=== PATIENT | female | born 1980 | race Caucasian/White ===

== ENCOUNTER 2016-12-15 14:11 | Emergency (ER) | payer MEDICAID ==
[2016-12-15] MEDS ORDERED: LIDOCAINE 1%-EPI 1:100000 20 ML MDV ONE (14:48)
[2016-12-15] MEDS ORDERED: LIDOCAINE-MPF 1% 5 ML VIAL ONE (14:51)
[2016-12-15] MEDS ORDERED: TETANUS/DIPHTHERIA/PERTUSSIS 0.5 ML SYRINGE IM ONE ×2 (15:39→15:45)
== END 2016-12-15 15:53 | disposition home or self-care (01) ==
DX: S61.512A Laceration without foreign body of left wrist, initial encounter (principal); W29.8XXA Contact with other powered hand tools and household machinery, initial encounter; Y92.009 Unspecified place in unspecified non-institutional (private) residence as the place of occurrence of the external cause; Z23 Encounter for immunization

== ENCOUNTER 2017-05-28 08:00 | Outpatient (CLI) | payer MEDICAID | END 2017-05-28 08:01 | disposition home or self-care (01) | LOC: LAB.R 08:00 | PROVIDERS: ATTEND Obstetrics & Gynecology | DX: Z11.3 Encounter for screening for infections with a predominantly sexual mode of transmission (principal) | CPT/HCPCS: 87491; 87591 ==

== ENCOUNTER 2018-01-12 08:02 | Emergency (ER) | payer MEDICAID, OTHER ==
[2018-01-12 08:34] LABS: BILIRUBIN,URINE NEGATIVE (NEGATIVE); GLUCOSE, URINE (UA) NEGATIVE (NEGATIVE); KETONES,URINE (UA) NEGATIVE (NEGATIVE); LEUKOCYTE ESTERASE, URINE NEGATIVE (NEGATIVE); NITRITE,URINE NEGATIVE (NEGATIVE); OCCULT BLOOD,URINE MODERATE (NEGATIVE); PH,URINE 5.5 PH (5.0-7.5); PROTEIN,URINE NEGATIVE (NEGATIVE); UROBILINOGEN,URINE 0.2 (NORMAL) E.U./dL (NORMAL)
[2018-01-12 08:34] LABS: BASOPHILS % (AUTO) 0.4 %; EOSINOPHILS # (AUTO) 0.3 10^3/uL (0.0-0.7); EOSINOPHILS % (AUTO) 3.2 %; HGB - HEMOGLOBIN 12.8 g/dL (12.0-16.0); LYMPHOCYTES # (AUTO) 2.1 10^3/uL (1.5-3.5); LYMPHOCYTES % (AUTO) 21.2 %; MEAN CORPUSCULAR VOLUME 85.4 fL (81.0-99.0); MEAN PLATELET VOLUME 10.4 fL (7.9-10.8); MONOCYTES # (AUTO) 0.6 10^3/uL (0.0-1.0); MONOCYTES % (AUTO) 6.4 %; NEUTROPHILS # (AUTO) 6.8 10^3/uL (1.5-6.6); NEUTROPHILS % (AUTO) 68.8 %; PLT - PLATELET COUNT 174 10^3/uL (130-450); RED BLOOD COUNT 4.41 10^6/uL (4.20-5.40); RED CELL DISTRIBUTION WIDTH 13.7 % (12.0-15.0); WHITE BLOOD COUNT 9.9 x10^3/uL (4.8-10.8)
--- NOTE | 2018-01-12 08:38 | ED Physician Documentation ---
History of Present Illness - Stated complaint Stated Complaint: SPOTTING/11 WKS PREG - Chief complaint Chief Complaint: Abd Pain - Additonal information Additional information: hx from pt 11 weeks EGA followed at [facility] has had a sono but those results are not available to me on a weekend vag bleeding since last night was moderate "like a light period" now scant no pain did not pass tissue called [facility] nurses line and was advised if continued bleeding > 8 hr to come to ED so she did Review of Systems Constitutional: denies: Fever GI: denies: Abdominal Pain : reports: Vaginal bleeding, Now EGA PD PAST MEDICAL HISTORY - Past Surgical History Past Surgical History: Yes Ortho: Knee replacement - Present Medications Home Medications: Ambulatory Orders Medication Instructions Recorded Confirmed Pnv No.122/Iron/Folic Acid 01/12/18 [ Multi Tablet] - Allergies Allergies/Adverse Reactions: Allergies Allergy/AdvReac Type Severity Reaction Status Date / Time amoxicillin [Amoxicillin] AdvReac Rash Verified 01/12/18 08:12 - Social History Does the pt smoke?: No Smoking Status: Never smoker Does the pt drink ETOH?: No Does the pt have substance abuse?: No - Immunizations Immunizations are current?: No Immunizations: TDAP >10years/unknown - POLST Patient has POLST: No PD ED PE NORMAL - Vitals Vital signs reviewed: Yes - Cardiac Cardiac: RRR - Respiratory Respiratory: No respiratory distress, Clear bilaterally - Abdomen Abdomen: Non tender - Female Female : Tissue Inserter present (Jolene), Other (no external lesions, small old dark blood in vault, os closed, no dc, cultures sent) - Neuro Neuro: Alert and oriented X 3 Results - Vitals Vitals: Vital Signs - 24 hr 01/12/18 08:08 Temperature 36.5 C Heart Rate 84 Respiratory 16 Rate Blood Pressure 113/75 O2 Saturation 97 Oxygen O2 Source Room air - Labs Labs: Laboratory Tests 01/12/18 01/12/18 01/12/18 08:18 08:22 08:22 WBC 9.9 RBC 4.41 Hgb 12.8 Hct 37.7 MCV 85.4 MCH 29.0 MCHC 34.0 RDW 13.7 Plt Count 174 MPV 10.4 Neut # 6.8 H Lymph # 2.1 [place] # 0.6 Eos # 0.3 Baso # 0.0 Absolute Nucleated RBC 0.00 Nucleated RBC % 0.0 HCG, Quant Urine Color YELLOW Urine Clarity CLEAR Urine pH 5.5 Ur Specific [place] >=1.030 H Urine Protein NEGATIVE Urine Glucose (UA) NEGATIVE Urine Ketones NEGATIVE Urine Occult Blood MODERATE H Urine Nitrite NEGATIVE Urine Bilirubin NEGATIVE Urine Urobilinogen 0.2 (NORMAL) Ur Leukocyte Esterase NEGATIVE Urine RBC 0-5 Urine WBC 0-3 Ur Squamous Epith Cells MANY Squamous H Urine Bacteria Moderate H Urine Mucus Few Strands Ur Microscopic Review INDICATED Urine Culture Comments NOT INDICATED Blood Type B NEGATIVE 01/12/18 08:22 WBC RBC Hgb Hct MCV MCH MCHC RDW Plt Count MPV Neut # Lymph # [place] # Eos # Baso # Absolute Nucleated RBC Nucleated RBC % HCG, Quant 683054.00 Urine Color Urine Clarity Urine pH Ur Specific [place] Urine Protein Urine Glucose (UA) Urine Ketones Urine Occult Blood Urine Nitrite Urine Bilirubin Urine Urobilinogen Ur Leukocyte Esterase Urine RBC Urine WBC Ur Squamous Epith Cells Urine Bacteria Urine Mucus Ur Microscopic Review Urine Culture Comments Blood Type - Rads (name of study) OB sono Radiology: See rad report (single IUP 11+6 small fluid collection inferior edge posterior placenta, cervix closed) PD MEDICAL DECISION MAKING - ED course ED course: IUP on sono cervix closed bleeding stopped no dc to suggest infection UA not a clean catch - doubt UTI - wait on cx B neg gve rhogam d/w pt Departure - Departure Disposition: 01 Home, Self Care Clinical Impression: Normal IUP (intrauterine ) on ultrasound Qualifiers: Trimester: first trimester Qualified Code(s): Z34.91 - Encounter for supervision of normal , unspecified, first trimester Condition: Good Instructions: Bleeding Early Preg Follow-Up: [facility] [Provider Group] Comments: The ultrasound was reassuring - a live baby in the uterus. There was a very small amount of blood at the edge of the placenta which is the likely source of the bleeding you experienced. It is a small area and the placenta is otherwise normal. I cannot promise that there won't be more bleeding or a miscarriage but the ultrasound is reassuring, the bleeding seems to have stopped, there is no sign of an infection and your cervix is closed so thing look good right now As we discussed it is fine for you to go home Recommend pelvic rest (no sex no tampons) Please follow up with your OB this week for a recheck - we gave you a copy of your ultrasound to take with your. Please let your OB know that your blood type is B negative and you got Rhogam in the ER
[2018-01-12 08:54] LABS: CLARITY,URINE CLEAR (CLEAR)
[2018-01-12 08:55] LABS: BACTERIA,URINE Moderate /HPF (None Seen); MUCUS,URINE Few Strands; RBC,URINE 0-5 /HPF (0-5); SQUAMOUS EPITHELIAL CELL,UR MANY Squamous (<= Few)
--- NOTE | 2018-01-12 11:33 | Ultrasound Report ---
EXAM: FIRST TRIMESTER OBSTETRIC ULTRASOUND (Less than 11 weeks) EXAM DATE: 01/12/2018 11:00 AM. CLINICAL HISTORY: 37-year-old female. 11 weeks EGA bleeding. LMP: 10/27/2017. COMPARISONS: None. TECHNIQUE: Transabdominal and transvaginal ultrasound examination with static image documentation. CLINICAL DATES: EGA 11 weeks 0 days with TESSA 08/03/2018 based on LMP. ASSESSMENT: Gestational Sac: Single intrauterine. Gestational sac size subjectively proportionate. Embryo: CRL (crown-rump length) 53 mm = 11 weeks 6 days. Cardiac activity: 159 beats per minute. Yolk sac: 4.4 mm. Amniotic fluid: Not accurately assessed at this gestational age. Early placenta: Posterior. Other: 2.0 x 0.5 x 3.3 cm fluid collection along the inferior edge of the placenta. MATERNAL STRUCTURES: Uterus: Anteverted. Unremarkable. Cervix: Closed. 4.0 cm. Right Ovary/Adnexa: Unremarkable. The ovary measures 3.0 x 1.4 x 2.0 cm, volume 4.3 cc. Left Ovary/Adnexa: Unremarkable. The ovary measures 3.1 x 2.1 x 2.2 cm, volume 7.4 cc. Free Fluid: None. Other: None. IMPRESSION: 1. Single viable intrauterine at EGA 11 weeks 6 days with TESSA 07/28/2018 based on crown-rum p length, which is concordant with clinical dates. 2. Assigned dating is TESSA 08/03/2018 based on LMP. 3. Small 2.0 x 0.5 x 3.3 cm diskoid fluid collection/hemorrhage along the inferior edge of the lean process deployment consultant ior placenta. 4. Cervix long and closed. [facility] Referring Provider Line: [phone] SITE ID: [id number]
[2018-01-12] MEDS ORDERED: RHO(D) IMMUNE GLOBULIN 300 MCG SYRINGE IM ONE (12:07)
[2018-01-12 12:57] VITALS: BP 110/62
== END 2018-01-12 13:02 | disposition home or self-care (01) ==
LOC: ED 08:02
DX: Z34.91 Encounter for supervision of normal pregnancy, unspecified, first trimester (principal)
CPT/HCPCS: 36415; 76801; 76817; 81001; 81003; 84702; 85025; 86900; 86901; 87086; 87491; 87591; 96372; 99283

== ENCOUNTER 2018-05-06 13:55 | Emergency (ER) | payer OTHER ==
[2018-05-06 14:26] VITALS: BP 117/74
--- NOTE | 2018-05-06 15:33 | XRAY Report ---
Procedure Date: 05/06/2018 Accession Number: [id number] / [id number] Procedure: XR - Knee 4 View LT CPT Code: FULL RESULT: EXAM: LEFT KNEE RADIOGRAPHY EXAM DATE: 05/06/2018 02:59 PM. CLINICAL HISTORY: FALL, TWIST, MEDIAL COMPARTMENT KNEE PAIN. COMPARISON: None. TECHNIQUE: 4 views. FINDINGS: Bones: Normal. No fractures or bone lesions. Joints: Normal alignment. No subluxation. A small knee joint effusion is present. Soft Tissues: Normal. No soft tissue swelling. IMPRESSION: 1. No acute osseous abnormality. 2. Small knee joint effusion. In the setting of recent acute injury, this may be a sign of internal derangement. Follow-up noncontrast MRI of the knee may be helpful for further evaluation if clinically appropriate. [facility]
--- NOTE | 2018-05-06 15:46 | ED Physician Documentation ---
PD HPI LOWER EXT INJURY - Stated complaint Stated Complaint: L KNEE INJ - Chief complaint Chief Complaint: Trauma Ext - History obtained from History obtained from: Patient - History of Present Illness PD HPI LOW EXT INJURY LOCATION: Left, Knee Type of injury: Twist Where injury occurred: Home Timing - onset: Today Timing - duration: Minutes Timing - details: Abrupt onset, Still present Improved by: Rest, Ice, Immobilization Worsened by: Moving, Palpating Associated symptoms: Swelling. No: Weakness, Numbness Contributing factors: No: Anticoagulated Similar symptoms before: Diagnosis (meniscus injury) Recently seen: Other (getting routine pre-kourtney care.) - Additional information Additional information: 37-year-old female is 26 weeks and she has slipped in her home twisting her left knee. She has some pain in the back side of the knee and on the medial joint line. She is able to ambulate on this but with significant pain. Review of Systems Constitutional: denies: Fever Eyes: denies: Decreased vision Ears: denies: Ear pain Nose: denies: Congestion Throat: denies: Sore throat Cardiac: denies: Chest pain / pressure Respiratory: denies: Cough GI: denies: Vomiting : denies: Dysuria Skin: denies: Rash Musculoskeletal: reports: Extremity pain, Joint pain, Joint swelling, Pain with weight bearing. denies: Neck pain, Back pain PD PAST MEDICAL HISTORY - Past Medical History Past Medical History: Yes - Past Surgical History Past Surgical History: Yes Ortho: Knee replacement - Present Medications Home Medications: Ambulatory Orders Medication Instructions Recorded Confirmed Pnv No.122/Iron/Folic Acid 01/12/18 [ Multi Tablet] - Allergies Allergies/Adverse Reactions: Allergies Allergy/AdvReac Type Severity Reaction Status Date / Time amoxicillin [Amoxicillin] AdvReac Rash Verified 01/12/18 08:12 - Social History Does the pt smoke?: No Smoking Status: Never smoker Does the pt drink ETOH?: No Does the pt have substance abuse?: No - Immunizations Immunizations are current?: No Immunizations: TDAP >10years/unknown - POLST Patient has POLST: No PD ED PE NORMAL - Vitals Vital signs reviewed: Yes (tachy ) - General General: Alert and oriented X 3, No acute distress, Well developed/nourished - HEENT HEENT: Atraumatic, PERRL, EOMI - Neck Neck: Supple, no meningeal sign - Respiratory Respiratory: No respiratory distress - Derm Derm: Normal color, Warm and dry, No rash - Extremities Extremities: No deformity, No edema, Other (exam of the left knee reveals a small effusion palpable medially and pain along the medial joint line. The ligments are stable to testing and the distal n/v is intact. ) - Neuro Neuro: Alert and oriented X 3, sports journalist 2-12 intact, No motor deficit, No sensory deficit, Normal speech Eye Opening: Spontaneous Motor: Obeys Commands Verbal: Oriented GCS Score: 15 - Psych Psych: Normal mood, Normal affect Results - Vitals Vitals: Vital Signs - 24 hr 05/06/18 14:08 Temperature 36.6 C Heart Rate 104 H Respiratory 16 Rate Blood Pressure 117/74 O2 Saturation 99 Oxygen O2 Source Room air - Rads (name of study) knee Radiology: Prelim report reviewed (Impression: 1. No acute osseous abnormality. 2 Small joint effusion. In the setting of recent acute injury, this could may be a sign of internal derangement. Follow-up noncontrast MRI of the knee may be helpful for further evaluation if clinically appropriate.), EMP read indepedently, See rad report PD MEDICAL DECISION MAKING - ED course Complexity details: reviewed results, re-evaluated patient, considered differential, d/w patient ED course: 37-year-old female who is 26 weeks has had a twist of her left knee and appears to have a small joint effusion, and likely injury to the meniscus. Ligaments appear stable. She is placed on crutches for ambulation and will follow-up with orthopedics. - Sepsis Event Vital Signs: Vital Signs - 24 hr 05/06/18 14:08 Temperature 36.6 C Heart Rate 104 H Respiratory 16 Rate Blood Pressure 117/74 O2 Saturation 99 Oxygen O2 Source Room air Departure - Departure Disposition: 01 Home, Self Care Clinical Impression: Internal derangement of knee Qualifiers: Laterality: left Qualified Code(s): M23.92 - Unspecified internal derangement of left knee Condition: Stable Instructions: ED Meniscal Injury Knee Poss Follow-Up: JESSICA HAMMOND [Primary Care Provider] - [facility] [Provider Group]
== END 2018-05-06 16:23 | disposition home or self-care (01) ==
LOC: ED 13:55
DX: O9A.212 Injury, poisoning and certain other consequences of external causes complicating pregnancy, second trimester (principal); M23.92 Unspecified internal derangement of left knee; M25.462 Effusion, left knee; W01.0XXA Fall on same level from slipping, tripping and stumbling without subsequent striking against object, initial encounter; Y92.009 Unspecified place in unspecified non-institutional (private) residence as the place of occurrence of the external cause; Z3A.26 26 weeks gestation of pregnancy
CPT/HCPCS: 99282; 99283

== ENCOUNTER 2019-08-30 07:40 | Emergency (ER) | payer OTHER ==
[2019-08-30 08:10] VITALS: BP 100/68
[2019-08-30] MEDS ORDERED: CHERRY SYRUP 10 ML UDC PO ONE (08:43)
[2019-08-30] MEDS ORDERED: KETOROLAC 60 MG/2 ML VIAL IM STA (08:43)
[2019-08-30] MEDS ORDERED: DEXAMETHASONE 10 MG/ML VIAL PO STA (08:43)
--- NOTE | 2019-08-30 08:59 | ED Physician Documentation ---
PD HPI BACK PAIN - Stated complaint Stated Complaint: BACK PX - Chief complaint Chief Complaint: Back Pain - History obtained from History obtained from: Patient - History of Present Illness Timing - onset: How many days ago (2) Timing - duration: Days (2) Timing - details: Abrupt onset, Still present Location: Lower, Left Quality: Pain, Spasm, Sharp Associated symptoms: No: Fever, Weakness, Numbness, Incontinent of urine, Unable to urinate, Hematuria, Incontinent of stool Improves with: Rest, Position Worsened by: Movement, Lifting, Twisting, Palpation Contributing factors: Other (The patient has a 30lb daughter that she carries.) Similar symptoms before: Has not had sx before Recently seen: Not recently seen - Additional information Additional information: 39-year-old female states that she was trying on some close to days ago when she bent and had a sudden sharp pain to the left lower back. She has persistence of pain in this area and despite using a heating pack all day yesterday the pain is not resolved. She did do some of her 's methocarbamol this did not seem to help either. She does have a 30 pound daughter that she carries around she states that she does not believe she did anything more strenuous or used her back more than she normally does during a week. 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 She denies any numbness or tingling to the toes and denies any numbness to the perineum. She does not have extension of pain down the leg. Review of Systems Constitutional: denies: Fever, Chills Respiratory: denies: Cough GI: denies: Vomiting : denies: Dysuria, Frequency PD PAST MEDICAL HISTORY - Past Medical History Past Medical History: Yes - Past Surgical History Past Surgical History: Yes Ortho: Knee replacement - Present Medications Home Medications: Ambulatory Orders Medication Instructions Recorded Confirmed Pnv No.122/Iron/Folic Acid 01/12/18 [ Multi Tablet] Cyclobenzaprine [Flexeril] 10 mg PO TID PRN #20 tablet 08/30/19 Hydrocodone/Acetaminophen 1 - 2 each PO Q6H PRN #14 tablet 08/30/19 [Hydrocodon-Acetaminophen 5-325] - Allergies Allergies/Adverse Reactions: Allergies Allergy/AdvReac Type Severity Reaction Status Date / Time amoxicillin [Amoxicillin] AdvReac Rash Verified 01/12/18 08:12 - Social History Does the pt smoke?: No Smoking Status: Never smoker Does the pt drink ETOH?: No Does the pt have substance abuse?: No - Immunizations Immunizations are current?: No Immunizations: TDAP >10years/unknown - POLST Patient has POLST: No PD ED PE NORMAL - Vitals Vital signs reviewed: Yes (normal ) - General General: Alert and oriented X 3, No acute distress, Well developed/nourished - HEENT HEENT: Atraumatic, PERRL, EOMI - Respiratory Respiratory: No respiratory distress - Back Back: No CVA TTP, No spinal TTP, Other (There is pain to palpation to the paraspinous muscles of the lumbar spine on the left lower back. ) - Derm Derm: Normal color, Warm and dry, No rash - Extremities Extremities: No deformity, No edema - Neuro Neuro: Alert and oriented X 3, still runner 2-12 intact, No motor deficit, No sensory deficit, Normal speech Eye Opening: Spontaneous Motor: Obeys Commands Verbal: Oriented GCS Score: 15 - Psych Psych: Normal mood, Normal affect Results - Vitals Vitals: Vital Signs - 24 hr 08/30/19 08:06 Temperature 36.4 C L Heart Rate 76 Respiratory 14 Rate Blood Pressure 100/68 O2 Saturation 100 Oxygen O2 Source Room air PD MEDICAL DECISION MAKING - ED course Complexity details: considered differential, d/w patient ED course: 39-year-old female with acute left lower lumbar spasm is administered dexamethasone 10 mg orally and 60 mg of Toradol. We will place her on a short course of pain medication muscle relaxant and expect complete resolution. I have asked patient to stop using her heating pack and use ice and stretch. Departure - Departure Disposition: 01 Home, Self Care Clinical Impression: Lumbago without sciatica Qualifiers: Chronicity: acute Back pain laterality: left Qualified Code(s): M54.5 - Low back pain Condition: Stable Instructions: ED Spasm Back No Trauma Follow-Up: Lennox Guerrero ARNP [Primary Care Provider] - Prescriptions: Cyclobenzaprine [Flexeril] 10 mg PO TID PRN #20 tablet PRN Reason: Spasms Hydrocodone/Acetaminophen [Hydrocodon-Acetaminophen 5-325] 1 - 2 each PO Q6H PRN #14 tablet PRN Reason: pain
== END 2019-08-30 09:22 | disposition home or self-care (01) ==
LOC: ED 07:40
DX: M62.830 Muscle spasm of back (principal); M54.5 Low back pain
CPT/HCPCS: 99282; 99283; A9270

== ENCOUNTER 2019-12-03 10:23 | Emergency (ER) | payer OTHER ==
[2019-12-03 10:37] VITALS: BP 108/77
[2019-12-03 10:42] LABS: RAPID STREP SCREEN POSITIVE (Negative)
--- NOTE | 2019-12-03 12:05 | ED Physician Documentation ---
PD HPI HEENT - Stated complaint Stated Complaint: SORE THROAT - Chief complaint Chief Complaint: Heent - History obtained from History obtained from: Patient - History of Present Illness Timing - onset: Last night (Sore throat since last night with fevers and body aches, no other URI symptoms. No sick contacts. Pain is severe despite taking ibuprofen at home.) Review of Systems Constitutional: reports: Chills, Myalgias Nose: denies: Rhinorrhea / runny nose Throat: reports: Sore throat Cardiac: reports: Reviewed and negative Respiratory: reports: Reviewed and negative PD PAST MEDICAL HISTORY - Past Surgical History Past Surgical History: Yes Ortho: Knee replacement - Present Medications Home Medications: Ambulatory Orders Medication Instructions Recorded Confirmed No122/Iron/Folic Acid 01/12/18 [ Multi Tablet] Cyclobenzaprine [Flexeril] 10 mg PO TID PRN #20 tablet 08/30/19 Hydrocodone/Acetaminophen 1 - 2 each PO Q6H PRN #14 tablet 08/30/19 [Hydrocodon-Acetaminophen 5-325] Cephalexin [Keflex] 500 mg PO Q6H #40 capsule 12/03/19 Hydrocodone/Acetaminophen 1 - 2 each PO Q6H PRN #7 tablet 12/03/19 [Hydrocodon-Acetaminophen 5-325] - Allergies Allergies/Adverse Reactions: Allergies Allergy/AdvReac Type Severity Reaction Status Date / Time amoxicillin [Amoxicillin] AdvReac Rash Verified 12/03/19 10:35 - Social History Does the pt smoke?: No Smoking Status: Never smoker Does the pt drink ETOH?: No Does the pt have substance abuse?: No - Immunizations Immunizations are current?: No Immunizations: TDAP >10years/unknown - POLST Patient has POLST: No PD ED PE NORMAL - Vitals Vital signs reviewed: Yes - General General: Alert and oriented X 3, No acute distress - HEENT HEENT: PERRL, EOMI, Other (Red tonsillar pillars without exudates, no kissing tonsillitis) - Neck Neck: Supple, no meningeal sign - Neuro Neuro: Alert and oriented X 3, Normal speech Results - Vitals Vitals: Vital Signs - 24 hr 12/03/19 10:32 Temperature 37 C Heart Rate 113 H Respiratory 18 Rate Blood Pressure 108/77 O2 Saturation 98 Oxygen O2 Source Room air - Labs Labs: Laboratory Tests 12/03/19 10:35 Group A Strep Rapid POSITIVE H Departure - Departure Disposition: Home, Self Care Clinical Impression: Strep pharyngitis Condition: Good Record reviewed to determine appropriate education?: Yes Instructions: ED Strep Pharyngitis Conf Prescriptions: Cephalexin [Keflex] 500 mg PO Q6H #40 capsule Hydrocodone/Acetaminophen [Hydrocodon-Acetaminophen 5-325] 1 - 2 each PO Q6H PRN #7 tablet PRN Reason: pain Comments: You should not be contagious in 24 hours, return for new or worsening symptoms. Follow-up with your doctor at the end of the weekend if not better.
== END 2019-12-03 12:11 | disposition home or self-care (01) ==
LOC: ED 10:23
DX: J02.0 Streptococcal pharyngitis (principal)
CPT/HCPCS: 87430; 99283; 99284

== ENCOUNTER 2020-01-15 15:54 | Emergency (ER) | payer OTHER ==
[2020-01-15] MEDS ORDERED: DEXAMETHASONE 10 MG/ML VIAL PO STA (16:50)
[2020-01-15] MEDS ORDERED: CHERRY SYRUP 10 ML UDC PO ONE (16:50)
[2020-01-15] MEDS ORDERED: IBUPROFEN 800 MG TABLET PO STA (16:51)
[2020-01-15 17:02] LABS: RAPID STREP SCREEN Negative (Negative)
--- NOTE | 2020-01-15 17:19 | ED Physician Documentation ---
History of Present Illness - Stated complaint Stated Complaint: RT SIDE THROAT PX - Chief complaint Chief Complaint: Heent - History obtained from History obtained from: Patient - History of Present Illness Timing: How many days ago (3) Pain level max: 8 Pain level now: 8 - Additonal information Additional information: 39-year-old female presents to the emergency department with a sore throat for the past 3 to 4 days. No fevers. Minimal cough. No nausea or vomiting. No abdominal pain. Worse with swallowing, better with rest. She is not , breast-feeding or trying to become . Review of Systems Constitutional: denies: Fever, Chills Respiratory: denies: Cough GI: denies: Abdominal Pain, Vomiting, Diarrhea Skin: denies: Rash PD PAST MEDICAL HISTORY - Past Medical History Past Medical History: No - Past Surgical History Past Surgical History: Yes Ortho: Knee replacement - Present Medications Home Medications: Ambulatory Orders Medication Instructions Recorded Confirmed Ibuprofen [Motrin] 800 mg PO Q8H PRN #30 tablet 01/15/20 - Allergies Allergies/Adverse Reactions: Allergies Allergy/AdvReac Type Severity Reaction Status Date / Time amoxicillin [Amoxicillin] AdvReac Rash Verified 01/15/20 16:15 - Social History Does the pt smoke?: No Smoking Status: Never smoker Does the pt drink ETOH?: No Does the pt have substance abuse?: No - Immunizations Immunizations are current?: No Immunizations: TDAP >10years/unknown - POLST Patient has POLST: No PD ED PE NORMAL - Vitals Vital signs reviewed: Yes (Heart rate is 86, not 6) - General General: Alert and oriented X 3, No acute distress, Well developed/nourished - HEENT HEENT: PERRL, Ears normal, Moist mucous membranes, Other (Posterior pharyngeal erythema without tonsillar exudates. Uvula midline. Normal phonation. No trismus.) - Neck Neck: Supple, no meningeal sign, No adenopathy - Cardiac Cardiac: RRR, Strong equal pulses - Respiratory Respiratory: No respiratory distress, Clear bilaterally - Abdomen Abdomen: Soft, Non tender, Non distended - Derm Derm: Warm and dry, No rash - Neuro Neuro: Alert and oriented X 3 - Psych Psych: Normal mood, Normal affect Results - Vitals Vitals: Vital Signs - 24 hr 01/15/20 16:06 Temperature 36.8 C Heart Rate 6 L Respiratory 18 Rate Blood Pressure 132/80 H O2 Saturation 99 Oxygen O2 Source Room air - Labs Labs: Laboratory Tests 01/15/20 16:34 Group A Strep Rapid Negative PD MEDICAL DECISION MAKING - ED course Complexity details: reviewed results, re-evaluated patient, considered differential, d/w patient ED course: Rapid strep is negative. Patient appears to have a viral pharyngitis. She is well-appearing, nontoxic. Afebrile. Tolerating p.o. without difficulty. We will continue supportive care and have her follow-up with her doctor. Patient counseled regarding signs and symptoms for which I believe and urgent re- evaluation would be necessary. Patient with good understanding of and agreement to plan and is comfortable going home at this time This document was made in part using voice recognition software. While efforts are made to proofread this document, sound alike and grammatical errors may occur. Departure - Departure Disposition: 01 Home, Self Care Clinical Impression: Viral pharyngitis Condition: Good Instructions: ED Pharyngitis Viral Follow-Up: Lennox Guerrero ARNP [Primary Care Provider] - As Needed Prescriptions: Ibuprofen [Motrin] 800 mg PO Q8H PRN #30 tablet PRN Reason: PAIN &/OR FEVER Comments: Drink plenty of fluids. Return if you worsen. Your rapid strep test is negative. If your throat culture returns positive in 2 days, you will receive a phone call for antibiotics.
[2020-01-15 17:56] VITALS: BP 129/76
== END 2020-01-15 18:06 | disposition home or self-care (01) ==
LOC: ED 15:54
DX: J02.8 Acute pharyngitis due to other specified organisms (principal); B97.89 Other viral agents as the cause of diseases classified elsewhere
CPT/HCPCS: 87070; 87430; 99283; 99284; A9270

== ENCOUNTER 2021-11-16 10:38 | Emergency (ER) | payer OTHER ==
[2021-11-16 10:53] VITALS: BP 132/74
--- NOTE | 2021-11-16 11:58 | ED Physician Documentation ---
History of Present Illness - Stated complaint Stated Complaint: LT HAND SWELLING/PX - Chief complaint Chief Complaint: Ext Problem - Additonal information Additional information: 41-year-old female presents emergency department for evaluation of acute left forearm wrist and hand swelling that began 4 days ago. She woke up from sleep with it. She states that she has pain when she pronates the hand or moves the wrist. No history of similar in the past. She did go to a local walk-in clinic who advised her to come to the ER for DVT rule out. No history of OCP use previous history of cancer or blood clots. No family history that she is aware of for clotting disorders. No recent travel for the patient no fevers. No open sores or lesions. Due to pain she has a difficult time making a full grasp with the hand. No fevers. No chest pain, no SOA Review of Systems Constitutional: denies: Fever, Chills Ears: reports: Reviewed and negative Nose: reports: Reviewed and negative Throat: reports: Reviewed and negative Cardiac: reports: Reviewed and negative Respiratory: reports: Reviewed and negative GI: reports: Reviewed and negative : reports: Reviewed and negative Musculoskeletal: reports: Joint pain, Extremity swelling Neurologic: reports: Reviewed and negative PD PAST MEDICAL HISTORY - Past Surgical History Past Surgical History: Yes Ortho: Knee replacement - Present Medications Home Medications: Ambulatory Orders Medication Instructions Recorded Confirmed Ibuprofen [Motrin] 800 mg PO Q8H PRN #30 tablet 01/15/20 - Allergies Allergies/Adverse Reactions: Allergies Allergy/AdvReac Type Severity Reaction Status Date / Time amoxicillin [Amoxicillin] AdvReac Rash Verified 11/16/21 10:53 - Social History Does the pt smoke?: No Smoking Status: Never smoker Does the pt drink ETOH?: No Does the pt have substance abuse?: No - Immunizations Immunizations are current?: No Immunizations: TDAP >10years/unknown - POLST Patient has POLST: No PD ED PE EXPANDED - General General: Alert, No acute distress, Well developed/nourished - Extremities Extremities: Left forearm (mild swelling from mid forearm to hand withotu erythema. tenderness with palpation of the forearm and wrist. Full ROM though painful) Results - Vitals Vitals: Vital Signs - 24 hr 11/16/21 10:46 Temperature 36.8 C Heart Rate 74 Respiratory 16 Rate Blood Pressure 132/74 H O2 Saturation 99 Oxygen O2 Source Room air - Rads (name of study) left arm US DVT Radiology: Final report received (No deep vein thrombus) PD MEDICAL DECISION MAKING - ED course Complexity details: reviewed results, re-evaluated patient, d/w patient ED course: 41-year-old female presents emergency department with 3 days of left arm swelling in the absence of trauma. No fevers or erythema. No fluid collections. Very low suspicion of bacterial infection. Given lack of trauma and normal movement and range of motion of all joints lower suspicion for occult fracture. Ultrasound was completed to rule out DVT and reassuringly none is seen. It is not clear what the cause of her inflammation is. Patient was given one-time dose of Decadron here in the emergency department and is advised Tylenol or ibuprofen at home for discomfort. Emergent return precautions were discussed for worsening pain, fevers, redness swelling, or any other emergent concerns. Departure - Departure Disposition: 01 Home, Self Care Clinical Impression: Left arm swelling Condition: Stable Record reviewed to determine appropriate education?: Yes Comments: Jing baker are seen in the emergency department today for swelling in your left arm that began just a few days ago. As we discussed at the bedside the ultrasound does not show a deep vein thrombus. You do not have any fevers or redness or fluid collections to suspect a skin infection. It is not clear what the cause of the inflammation in your arm is from. We have given you a one-time dose of Decadron today in the emergency department which I think will help with pain and swelling over the next several days. I do recommend that you elevate your arm especially at night is much as you can. You may benefit from taking 500 mg of Tylenol 2-3 times a day or alternatively you can try 600 mg of ibuprofen with food 2-3 times a day. If at any point you have worsening swelling, develop any fevers, redness, red streaking or have severe pain then please do not hesitate to return for second evaluation.
[2021-11-16] MEDS ORDERED: DEXAMETHASONE 10 MG/ML VIAL PO STA (12:44)
[2021-11-16] MEDS ORDERED: CHERRY SYRUP 10 ML UDC PO ONE (12:44)
--- NOTE | 2021-11-16 12:58 | Ultrasound Report ---
PROCEDURE: Duplex Ext Veins Left INDICATIONS: LUE swelling/pain TECHNIQUE: Real-time imaging, as well as color and pulse Doppler interrogation, were performed of the left upper extremity deep veins from the inguinal ligament to the popliteal fossa. COMPARISON: None. FINDINGS: The left upper extremity deep veins are normally compressible, and free of intraluminal th rombus. Color and pulse Doppler demonstrate normal phasic intraluminal flow. There is normal augmen tation response to distal compression maneuver. IMPRESSION: No sonographic evidence of DVT in the left upper extremity. Reviewed by: Randell Zacarias MD on 11/16/2021 11:57 AM [facility] Approved by: Randell Zacarias MD on 11/16/2021 11:57 AM [facility] Station ID: [id number]
== END 2021-11-16 12:59 | disposition home or self-care (01) ==
LOC: ED 10:38
DX: R22.32 Localized swelling, mass and lump, left upper limb (principal)
CPT/HCPCS: 99283; 99284

== ENCOUNTER 2022-08-15 08:27 | Emergency (ER) | payer OTHER ==
--- NOTE | 2022-08-15 09:15 | XRAY Report ---
PROCEDURE: Chest 2 View X-Ray INDICATIONS: cough/SOA TECHNIQUE: 2 view(s) of the chest. COMPARISON: None. FINDINGS: Surgical changes and devices: None. Lungs and pleura: Patchy left basilar opacities present, likely within the lingula. No pleural effus ion or pneumothorax. Mediastinum: Cardiac silhouette is at the upper limits of normal in size. Bones and chest wall: No suspicious bony abnormalities. Soft tissues appear unremarkable. IMPRESSION: Left basilar pulmonary opacities are present which could represent aspiration or pneumonia in the rodolfo ropriate clinical setting. Imaging follow-up to ensure resolution is recommended, consider at 6-8 wee ks after completion of therapy. Reviewed by: Kael Martin MD on 08/15/2022 9:13 AM PDT Approved by: Kael Martin MD on 08/15/2022 9:13 AM PDT Station ID: [id number]
[2022-08-15] MEDS ORDERED: CHERRY SYRUP 10 ML UDC PO ONE (11:21)
[2022-08-15] MEDS ORDERED: IPRATROPIUM/ALBUTEROL 3 ML NEB INH STA (11:21)
[2022-08-15] MEDS ORDERED: DEXAMETHASONE 10 MG/ML VIAL PO STA (11:21)
--- NOTE | 2022-08-15 11:27 | ED Physician Documentation ---
PD HPI URI - Stated complaint Stated Complaint: SOA/COUGH - Chief complaint Chief Complaint: Resp - History obtained from History obtained from: Patient - History of Present Illness Timing - onset: How many days ago (4) Timing duration: Days (4) Timing details: Gradual onset, Still present Associated symptoms: Fever, Dry cough, Dyspnea Contributing factors: Sick contact Improves by: Rest, Medication Worsened by: Activity Similar symptoms before: Has not had sx before Recently seen: Not recently seen - Additional information Additional information: Previously well 42-year-old female with no particular past medical history has developed a cough and congestion 4 days ago. S he has developed a low-grade fever associated with this and has some chills and she has had increasing shortness of breath. She does not usually get sick and does not remember an episode of vomiting or choking prior to this. She has no history of asthma. Review of Systems Constitutional: reports: Fever, Chills, Myalgias Eyes: denies: Decreased vision Ears: denies: Ear pain Nose: reports: Rhinorrhea / runny nose, Congestion Throat: denies: Sore throat Cardiac: denies: Chest pain / pressure, Palpitations Respiratory: reports: Dyspnea, Cough GI: denies: Nausea, Vomiting, Constipation, Diarrhea : denies: Dysuria, Frequency PD PAST MEDICAL HISTORY - Past Surgical History Past Surgical History: Yes Ortho: Knee replacement - Present Medications Home Medications: Ambulatory Orders Medication Instructions Recorded Confirmed Ibuprofen [Motrin] 800 mg PO Q8H PRN #30 tablet 01/15/20 Albuterol Sulfate [Proair Hfa 1 - 2 puffs INH Q4H PRN #1 gm 08/15/22 Inhaler] Amox/Clav 875/125 [Augmentin] 1 each PO Q12H #20 tablet 08/15/22 Azithromycin [Zithromax] 250 mg PO DAILY #6 tablet 08/15/22 Benzonatate [Tessalon] 100 - 200 mg PO TID PRN #30 cap 08/15/22 Fluconazole [Diflucan] 1 tablet PO ONCE 1 Days #2 tablet 08/15/22 - Allergies Allergies/Adverse Reactions: Allergies Allergy/AdvReac Type Severity Reaction Status Date / Time amoxicillin [Amoxicillin] AdvReac Rash Verified 08/15/22 08:42 - Social History Does the pt smoke?: No Smoking Status: Never smoker Does the pt drink ETOH?: No Does the pt have substance abuse?: No - Immunizations Immunizations are current?: No Immunizations: TDAP >10years/unknown - POLST Patient has POLST: No PD ED PE NORMAL - Vitals Vital signs reviewed: Yes (tachy and hypertensive both mild) - General General: Alert and oriented X 3, No acute distress, Well developed/nourished - HEENT HEENT: Atraumatic, PERRL, EOMI, Other (minimal inflammation to the left TM) - Neck Neck: Supple, no meningeal sign, No bony TTP - Cardiac Cardiac: RRR, No murmur - Respiratory Respiratory: No respiratory distress, Other (scattered wheezes and rhonchi) - Abdomen Abdomen: Soft, Non tender - Back Back: No CVA TTP, No spinal TTP - Derm Derm: Normal color, Warm and dry, No rash - Extremities Extremities: No deformity, No edema - Neuro Neuro: Alert and oriented X 3, portable machine sander 2-12 intact, No motor deficit, No sensory deficit, Normal speech Eye Opening: Spontaneous Motor: Obeys Commands Verbal: Oriented GCS Score: 15 - Psych Psych: Normal mood, Normal affect Results - Vitals Vitals: Vital Signs - 24 hr 08/15/22 08/15/22 08/15/22 08:42 10:46 11:52 Temperature 38 C H Heart Rate 109 H 115 H 88 Respiratory 20 18 23 Rate Blood Pressure 128/83 H 107/56 L O2 Saturation 92 100 08/15/22 08/15/22 12:00 12:43 Temperature 37.7 C Heart Rate 94 Respiratory 18 Rate Blood Pressure 117/72 O2 Saturation 92 Oxygen O2 Source Room air - Rads (name of study) chest Radiology: Prelim report reviewed (Impression: Left basilar pulmonary opacities are present which could represent aspiration or pneumonia in the appropriate clinical setting. Image follow-up to ensure resolution is recommended, consider at 6 to 8 weeks after completion of therapy.), EMP read indepedently, See rad report PD MEDICAL DECISION MAKING - ED course Complexity details: reviewed old records, reviewed results, re-evaluated patient, considered differential, d/w patient ED course: 42-year-old female with a pneumonia has yeast reaction to amoxicillin. Here in the emerge department she is treated with an injection of Rocephin, dexamethasone and a DuoNeb treatment. She appears to have improvement. She is given Toradol for headache as well.We have prescribed Augmentin and azithromycin for community-acquired pneumonia and I have added a cough suppressant and Diflucan as well as albuterol. Departure - Departure Disposition: 01 Home, Self Care Clinical Impression: Pneumonia Qualifiers: Pneumonia type: due to unspecified organism Laterality: left Lung location: upper lobe of lung Qualified Code(s): J18.9 - Pneumonia, unspecified organism Condition: Stable Instructions: ED Pneumonia Adult Follow-Up: [facility] [Provider Group] Prescriptions: Amox/Clav 875/125 [Augmentin] 1 each PO Q12H #20 tablet Fluconazole [Diflucan] 1 tablet PO ONCE 1 Days #2 tablet Albuterol Sulfate [Proair Hfa Inhaler] 1 - 2 puffs INH Q4H PRN #1 gm PRN Reason: Shortness Of Air/Wheezing Benzonatate [Tessalon] 100 - 200 mg PO TID PRN #30 cap PRN Reason: Cough Azithromycin [Zithromax] 250 mg PO DAILY #6 tablet Comments: Jing, it looks like you have a pneumonia and this may be related to some aspiration. We have prescribed some Augmentin and azithromycin for treatment of this and these have been E scribed to the [facility] in [place]. In addition we have provided some cough suppressant and a inhaler to use as needed and Diflucan should you develop yeast from the Augmentin. Discharge Date/Time: 08/15/22 13:02
[2022-08-15 12:13] VITALS: BP 117/72
[2022-08-15] MEDS ORDERED: cefTRIAXone 1 GM VIAL IM STA (12:33)
[2022-08-15] MEDS ORDERED: LIDOCAINE 1% 2 ML VIAL MC ONE (12:33)
[2022-08-15] MEDS ORDERED: KETOROLAC 60 MG/2 ML VIAL IM STA (12:33)
== END 2022-08-15 13:02 | disposition home or self-care (01) ==
LOC: ED 08:27
DX: J18.9 Pneumonia, unspecified organism (principal); R51.9 Headache, unspecified
CPT/HCPCS: 71046; 94640; 94664; 96372; 99284; A9270

== ENCOUNTER 2023-01-05 07:17 | Outpatient (CLI) | payer OTHER ==
[2023-01-05 08:00] LABS: BASOPHILS % (AUTO) 0.5 %; EOSINOPHILS # (AUTO) 0.3 10^3/uL (0.0-0.7); EOSINOPHILS % (AUTO) 4.7 %; HCT - HEMATOCRIT 40.7 % (37.0-47.0); HGB - HEMOGLOBIN 12.8 g/dL (12.0-16.0); LYMPHOCYTES # (AUTO) 1.9 10^3/uL (1.5-3.5); LYMPHOCYTES % (AUTO) 32.4 %; MEAN CORPUSCULAR HEMOGLOBIN 27.2 pg (27.0-31.0); MEAN CORPUSCULAR HGB CONC 31.4 g/dL (32.0-36.0); MEAN CORPUSCULAR VOLUME 86.4 fL (81.0-99.0); MEAN PLATELET VOLUME 11.8 fL (7.9-10.8); MONOCYTES # (AUTO) 0.5 10^3/uL (0.0-1.0); MONOCYTES % (AUTO) 7.7 %; NEUTROPHILS # (AUTO) 3.3 10^3/uL (1.5-6.6); NEUTROPHILS % (AUTO) 54.5 %; PLT - PLATELET COUNT 240 10^3/uL (130-450); RED BLOOD COUNT 4.71 10^6/uL (4.20-5.40); RED CELL DISTRIBUTION WIDTH 13.6 % (12.0-15.0)
[2023-01-05 08:17] LABS: ALBUMIN 3.6 g/dL (3.2-5.5); ALKALINE PHOSPHATASE 92 IU/L (42-121); ALT ALANINE AMINOTRANSFERASE 24 IU/L (10-60); AST ASPARTATE AMINOTRANSFERASE 20 IU/L (10-42); BILIRUBIN,TOTAL 0.8 mg/dL (0.2-1.0); BUN - BLOOD UREA NITROGEN 17 mg/dL (6-20); CALCIUM 8.8 mg/dL (8.5-10.3); CARBON DIOXIDE - CO2 27 mmol/L (21-32); CHLORIDE 105 mmol/L (101-111); CHOL/HDL RATIO 6.2 (<4.4); CHOLESTEROL 249 mg/dL; CREATININE 0.8 mg/dL (0.4-1.0); GFR - MDRD 79 (>89); GLUCOSE 108 mg/dL (70-100); HDL CHOLESTEROL 40 mg/dL; LDL CHOLESTEROL,CALCULATED 184 mg/dL; LDL/HDL RATIO 4.6 (<4.4); POTASSIUM 3.7 mmol/L (3.5-5.0); SODIUM 137 mmol/L (135-145); TOTAL PROTEIN 7.3 g/dL (6.7-8.2); TRIGLYCERIDES 123 mg/dL; VLDL CHOLESTEROL 25 mg/dL
[2023-01-05 08:29] LABS: THYROID STIMULATING HORMONE 2.2 uIU/mL (0.34-5.60)
[2023-01-05 08:57] LABS: FOLLICLE STIMULATING HORMONE 5.79 mIU/mL
[2023-01-05 20:21] LABS: ESTIMATED AVERAGE GLUCOSE 123 mg/dL (70-100); HEMOGLOBIN A1c% 5.9 % (4.27-6.07)
== END 2023-01-05 07:18 | disposition home or self-care (01) ==
LOC: LAB 07:17
PROVIDERS: ATTEND Physician Assistant
DX: N92.6 Irregular menstruation, unspecified (principal); E66.9 Obesity, unspecified; Z13.9 Encounter for screening, unspecified; Z13.220 Encounter for screening for lipoid disorders; Z13.29 Encounter for screening for other suspected endocrine disorder; Z86.32 Personal history of gestational diabetes
CPT/HCPCS: 36415; 80053; 80061; 81599; 83001; 83036; 83721; 84443; 85025; 86038

== ENCOUNTER 2023-04-23 08:00 | Outpatient (CLI) | payer OTHER ==
[2023-04-23 07:36] LABS: BUN - BLOOD UREA NITROGEN 15 mg/dL (6-20); CALCIUM 8.8 mg/dL (8.5-10.3); CARBON DIOXIDE - CO2 28 mmol/L (21-32); CHLORIDE 102 mmol/L (101-111); CHOLESTEROL 239 mg/dL; CREATININE 0.8 mg/dL (0.4-1.0); GFR - MDRD 79 (>89); GLUCOSE 118 mg/dL (70-100); HDL CHOLESTEROL 40 mg/dL; LDL CHOLESTEROL,CALCULATED 168 mg/dL; LDL/HDL RATIO 4.2 (<4.4); POTASSIUM 4.2 mmol/L (3.5-5.0); SODIUM 137 mmol/L (135-145); TRIGLYCERIDES 153 mg/dL; VLDL CHOLESTEROL 31 mg/dL
[2023-04-23 08:15] LABS: ESTIMATED AVERAGE GLUCOSE 120 mg/dL (70-100); HEMOGLOBIN A1c% 5.8 % (4.27-6.07)
== END 2023-04-23 23:59 | disposition home or self-care (01) ==
LOC: LAB 08:00
PROVIDERS: ATTEND Physician Assistant
DX: E78.5 Hyperlipidemia, unspecified (principal); R73.01 Impaired fasting glucose
CPT/HCPCS: 36415; 80048; 80061; 83036; 83721